=== PATIENT | male | born 1940 | race Caucasian/White ===

== ENCOUNTER → 2016-11-02 | Outpatient (CLI) | payer MEDICARE, BC ==
--- NOTE | 2016-11-02 09:13 | CT ---
EXAMINATION TYPE: CT chest wo con DATE OF EXAM: 11/02/2016 9:00 AM COMPARISON: August 24, 2015 18 06/24/2016 HISTORY: Follow up to oral pharynx CT DLP: 180.[address] of the chest was performed with lung and mediastinal window settings submitted. The la ck of contrast limits evaluation of the vascular, mediastinal and parenchymal structures including th e upper abdomen. LUNGS: Stable groundglass opacity within the right middle lobe reflecting postinflammatory change. No dular density described previously left upper lobe has resolved. No distinct pulmonary nodules apprec iated at this time. Hyperinflation compatible with COPD. 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 No atelectasis. No pleural effusion identified. MEDIASTINUM/RUSS: Ectasia of the thoracic aorta with the ascending thoracic aorta measuring 3.9 cm. A theromatous change noted. Coronary artery calcifications identified. No evidence for mediastinal mass . No lymph nodes greater than 1cm. UPPER ABDOMEN: No significant abnormality is seen. OTHER: No significant other abnormality. IMPRESSION: 1. Asbestos-related pleural disease. 2. Resolution previously noted left upper lobe pulmonary nodule.
== END | disposition home or self-care (01) ==
LOC: RADCTMAIN 08:41
PROVIDERS: ATTEND Internal Medicine Hematology & Oncology
DX: C10.9 Malignant neoplasm of oropharynx, unspecified (principal); J92.9 Pleural plaque without asbestos
CPT/HCPCS: 71250

== ENCOUNTER → 2017-08-28 | Outpatient (CLI) | payer MEDICARE, BC ==
--- NOTE | 2017-08-28 11:56 | FL ---
EXAMINATION TYPE: FL barium swallow w video DATE OF EXAM: 08/28/2017 COMPARISON: NONE HISTORY: Malfunction of tracheostomy TECHNIQUE: Fluoroscopy. FINDINGS: Fluoroscopic guidance was provided for the procedure performed in conjunction with the [facility] ech pathology department. Please see complete report forthcoming from the Speech Pathology departmen t. Various consistencies from thin liquid to solids were administered. Fluoroscopy time 3 minutes 23 seconds Number of images: 1 Penetration was evident. There is extension into the tracheostomy site. There is marked pooling present throughout the examination within the vallecula. There is retention i n the proximal esophagus and hypopharynx. There is delay thicker consistencies through the oropharynx. Chin tuck method have improved diminished penetration. Please see complete report forthcoming from the speech pathology department. IMPRESSION: 1. Penetration and no extension into the tracheostomy site especially noted within liquids. 2. Pooling in the vallecula. 3. Delayed transit
== END ==
LOC: RADFLMAIN 10:07
PROVIDERS: ATTEND Thoracic Surgery (Cardiothoracic Vascular Surgery)
DX: J95.03 Malfunction of tracheostomy stoma (principal)
CPT/HCPCS: 74230

== ENCOUNTER 2018-01-15 10:45 | Emergency (ER) | payer MEDICARE, BC ==
--- NOTE | 2018-01-15 11:38 | ED ---
General Adult HPI - General Chief complaint: Recheck/Abnormal Lab/Rx Stated complaint: feeding tube problem Time Seen by Provider: 01/15/18 11:09 Source: patient, RN notes reviewed Mode of arrival: ambulatory Limitations: no limitations - History of Present Illness Initial comments: Patient 77-year-old male significant past medical history for throat cancer, presented to the emergency room today with a chief complaint of PEG tube fell out last night. Patient admits that 4 years ago when she was initially placed in a larger PEG tube. He states 6 months ago it was changed and this is a smaller diameter. States unsure if this is related. He states he did try to call his surgeon but is already office until this Monday. Patient denies any recent fever, chills, shortness of breath, chest pain, back pain, abdominal pain , nausea or vomiting, numbness or tingling, dysuria or hematuria, constipation or diarrhea, headaches or visual changes, or any other complaints. - Related Data Home Medications Medication Instructions Recorded Confirmed LORazepam [Lorazepam] 0.5 mg PO DAILY PRN 09/22/15 01/15/18 Tamsulosin HCl [Flomax] 0.4 mg PO DAILY 09/22/15 01/15/18 Allergies Allergy/AdvReac Type Severity Reaction Status Date / Time No Known Allergies Allergy Verified 01/15/18 11:34 Review of Systems ROS Statement: Those systems with pertinent positive or pertinent negative responses have been documented in the HPI. ROS Other: All systems not noted in ROS Statement are negative. Past Medical History Past Medical History: Cancer, Prostate Disorder Additional Past Medical History / Comment(s): Throat CA-2013 w/chemotherapy and radiation treatment; HAS TRACHEOSTOMY OPENING, NON-HEALING. BPH. History of Any Multi-Drug Resistant Organisms: None Reported Additional Past Surgical History / Comment(s): Feeding tube insertion. Biopsy of throat. Tracheostomy Past Anesthesia/Blood Transfusion Reactions: No Reported Reaction Past Psychological History: Anxiety, Depression Smoking Status: Former smoker Past Alcohol Use History: Daily Past Drug Use History: None Reported - Past Family History Father Family Medical History: No Reported History General Exam - General Exam Comments Initial Comments: General: The patient is awake and alert, in no distress, and does not appear acutely ill. Eye: Pupils are equal, round and reactive to light, extra-ocular movements are intact. No nystagmus. There is normal conjunctiva bilaterally. No signs of icterus. Ears, nose, mouth and throat: There are moist mucous membranes and no oral lesions. Neck: The neck is supple Gastrointestinal: Soft, non-distended, non-tender abdomen without masses or organomegaly noted. There is no rebound or guarding present. No CVA tenderness. Musculoskeletal: Normal ROM, no tenderness. Strength 5/5. Sensation intact. Pulses equal bilaterally 2+. Neurological: A&O x 3. CN II-XII intact, There are no obvious motor or sensory deficits. Coordination appears grossly intact. Speech is normal. Skin: Skin is warm and dry and no rashes or lesions are noted. Psychiatric: Cooperative, appropriate mood & affect, normal judgment. Limitations: no limitations Course Vital Signs 01/15/18 01/15/18 11:02 12:28 Temperature 98.4 F 98.0 F Pulse Rate 90 79 Respiratory 17 18 Rate Blood Pressure 151/78 155/92 O2 Sat by Pulse 99 100 Oximetry Procedures - Procedures Initial comment: Area around the PEG tube site was cleaned. An 18-Kyrgyz PEG tube was replaced with no complications. Patient tolerated procedure well. Medical Decision Making - Medical Decision Making Patient's x-ray reviewed and does show good placement of PEG tube. Does show possible metastatic disease to the bone. Results were discussed with the patient. He is advised to follow-up with his oncologist and family physician. Patient states understanding and is in agreement. Disposition Clinical Impression: PEG tube malfunction Disposition: HOME SELF-CARE Condition: Good Instructions: How to Use and Care for Your PEG Tube (ED) Additional Instructions: Please follow-up the family doctor and your oncologist about spots seen on x- ray on the right side of the pelvis. Please return to the emergency room for any other concerns. Is patient prescribed a controlled substance at d/c from ED?: No Referrals: Luis Manjarrez MD [Primary Care Provider] - 1-2 days Time of Disposition: 13:24
[2018-01-15 12:30] VITALS: BP 155/92; PULSE 79; RESP 18; TEMP 98
--- NOTE | 2018-01-15 13:11 | XR ---
Abdomen HISTORY: PEG tube fell out Frontal view of the abdomen on 2 images correlated to prior exam CT chest 11/02/2016 Overlying tubing is present in the left upper quadrant. Basilar scarring suspected within the lungs, there are calcified pleural plaques. No pneumoperitoneum or bowel obstruction is evident. Knee sclero tic density in the right ilium has progressed, possible additional sclerotic densities in the pelvis. There is a spinal curvature, degenerative disc change in the visualized spine. IMPRESSION: PEG tube has been replaced overlying the left upper quadrant. 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 Correlate for asbestos- related disease.
== END 2018-01-15 13:47 | disposition home or self-care (01) ==
LOC: EC 10:45
DX: K94.23 Gastrostomy malfunction (principal); N42.9 Disorder of prostate, unspecified; Z85.21 Personal history of malignant neoplasm of larynx; Z79.899 Other long term (current) drug therapy; Z87.891 Personal history of nicotine dependence
CPT/HCPCS: 43760; 74018; 99283

== ENCOUNTER 2018-04-04 09:01 | Emergency (ER) | payer MEDICARE, BC ==
[2018-04-04 09:14] VITALS: TEMP 98.7
--- NOTE | 2018-04-04 09:47 | ED ---
Recheck HPI - General Chief Complaint: Recheck/Abnormal Lab/Rx Stated Complaint: Port fell out Time Seen by Provider: 04/04/18 09:14 Source: patient, RN notes reviewed Mode of arrival: ambulatory Limitations: no limitations - History of Present Illness Initial Comments: This a 78-year-old male presents emergency Department chief complaint of PEG tube fell out. Patient states that following around 9 PM last night. Patient has had a PEG tube for over 4 years now. Patient states that he fell a few months ago. Patient states that he has no associated pain. Patient denies any fever, chills, nausea, vomiting, diarrhea constipation. - Related Data Home Medications Medication Instructions Recorded Confirmed LORazepam [Lorazepam] 0.5 mg PO DAILY PRN 09/22/15 01/15/18 Tamsulosin HCl [Flomax] 0.4 mg PO DAILY 09/22/15 01/15/18 Allergies Allergy/AdvReac Type Severity Reaction Status Date / Time No Known Allergies Allergy Verified 04/04/18 09:14 Review of Systems ROS Statement: Those systems with pertinent positive or pertinent negative responses have been documented in the HPI. ROS Other: All systems not noted in ROS Statement are negative. Past Medical History Past Medical History: Cancer, Prostate Disorder Additional Past Medical History / Comment(s): Throat CA-2014 w/chemotherapy and radiation treatment; HAS TRACHEOSTOMY OPENING, NON-HEALING. BPH. History of Any Multi-Drug Resistant Organisms: None Reported Additional Past Surgical History / Comment(s): Feeding tube insertion. Biopsy of throat. Tracheostomy Past Anesthesia/Blood Transfusion Reactions: No Reported Reaction Past Psychological History: Anxiety, Depression Smoking Status: Former smoker Past Alcohol Use History: Daily Past Drug Use History: None Reported - Past Family History Father Family Medical History: No Reported History General Exam Limitations: no limitations General appearance: alert, in no apparent distress Head exam: Present: atraumatic, normocephalic, normal inspection Respiratory exam: Present: normal lung sounds bilaterally. Absent: respiratory distress, wheezes, rales, rhonchi, stridor Cardiovascular Exam: Present: regular rate, normal rhythm, normal heart sounds. Absent: systolic murmur, diastolic murmur, rubs, gallop, clicks GI/Abdominal exam: Present: soft, normal bowel sounds, other (Open left upper quadrant, no erythema). Absent: distended, tenderness, guarding, rebound, rigid Skin exam: Present: warm, dry, intact, normal color. Absent: rash Course Vital Signs 04/04/18 09:09 Temperature 98.7 F Pulse Rate 88 Respiratory 18 Rate Blood Pressure 121/74 O2 Sat by Pulse 100 Oximetry Procedures - Procedures Initial comment: Site for PEG tube was cleaned with saline, 18-Lebanese PEG tube was placed and balloon inflated with 10 mL of saline tolerated well no complications. X- rays ordered for placement Medical Decision Making - Medical Decision Making 77-year-old male presented emergency Department for right tube malfunction. Patient's PEG tube did fall out. This was placed in emergency department with another 18-Lebanese PEG tube. Patient tolerated well x-ray was obtained for placement after. Disposition Clinical Impression: PEG tube malfunction Disposition: HOME SELF-CARE Condition: Stable Instructions: How to Use and Care for Your PEG Tube (ED) Additional Instructions: Please return to the Emergency Department if symptoms worsen or any other concerns. Is patient prescribed a controlled substance at d/c from ED?: No Referrals: Luis Mnajarrez MD [Primary Care Provider] - 1-2 days Time of Disposition: 09:57
--- NOTE | 2018-04-04 10:22 | XR ---
Abdomen HISTORY: PEG tube placement Frontal view of the abdomen submitted and correlated prior exam 01/15/2018 Contrast was administered through the PEG tube prior dated obtaining the image. Patient received 50 c c Isovue [id number]. Tube shows contrast, there is contrast within the stomach. Pleural calcifications, pleural parenchyma l changes are stable at the lung bases. No evident extravasation. Sclerotic focus present within the right ilium. IMPRESSION: PEG tube within the stomach.
[2018-04-04 10:47] VITALS: BP 118/70; PULSE 82; RESP 16
== END 2018-04-04 10:47 | disposition home or self-care (01) ==
LOC: EC 09:01
DX: K94.23 Gastrostomy malfunction (principal); N40.0 Benign prostatic hyperplasia without lower urinary tract symptoms; Z85.89 Personal history of malignant neoplasm of other organs and systems; Z87.891 Personal history of nicotine dependence; Z79.899 Other long term (current) drug therapy
CPT/HCPCS: 74018; 99283; 43760; Q9967